=== PATIENT | male | born 1990 | race Caucasian/White ===

== ENCOUNTER 2019-06-03 14:16 | Emergency (ER) | payer SELFPAY ==
[~2019-06-03] VITALS: Ht 172.7 cm; Wt 69.0 kg
[2019-06-03 14:19] VITALS: BP 155/95
== END 2019-06-03 15:16 | disposition left against medical advice (07) ==
LOC: ER 14:16
DX: F99 Mental disorder, not otherwise specified (principal); Z53.21 Procedure and treatment not carried out due to patient leaving prior to being seen by health care provider